=== PATIENT | female | born 1980 | race Caucasian/White ===

== ENCOUNTER 2016-11-27 15:36 | Emergency (ER) | payer OTHER ==
[~2016-11-27] VITALS: Ht 175.3 cm; Wt 81.7 kg
--- NOTE | ~2016-11-27 | EKG ---
[address] [place] [address] ELECTROCARDIOGRAM REPORT Name: TANNER HARRINGTON Room #: DEP LULU Bhat#: [id number] Admission: 11/27/16 Attend Phys: Discharge: 11/27/16 Date of : 82 Report #: [id number] THIS REPORT FOR: //name// [facility] ED Test Date: 2016-11-27 Test Time: 15:41:05 Pat Name: TANNER HARRINGTON Department: Room: Gender: F Contract Lead: Evangelina COATS : 1980 Requested By: Melo Collins Order Number: [id number] MD: Kobe Bruner Measurements Intervals [place] Rate: 141 P: 85 MT: 120 QRS: 37 QRSD: 83 T: -52 QT: 299 QTc: 458 Interpretive Statements Sinus tachycardia Borderline T abnormalities, inferior leads No previous ECG available for comparison Electronically Signed On 11-27-2016 20:30:17 CDT by Kobe Bruner [email or web address] <ELECTRONICALLY SIGNED> By: Kobe Bruner MD 11/27/16 2030 1541 1541 Kobe Bruner MD /DADA
[~2016-11-27 15:36] MED LIST: AMOXICILLIN875 MG PO; PERCOCET 5-3251 EACH PO
[2016-11-27 16:01] LABS: HEMATOCRIT 42.6 % (37.0-47.0); HEMOGLOBIN 14.6 gm/dL (12.0-15.0); MANUAL DIFF YES; MCH 32.8 pg (26.0-34.0); MCHC 34.2 g/dL (28.0-37.0); MCV 95.9 fL (80.0-100.0); PLATELET COUNT 486 thou/uL (150-400); RBC 4.44 mil/uL (4.20-5.00); RDW 13.8 % (10.5-14.5); WBC 19.6 thou/uL (4.0-11.0)
[2016-11-27 16:11] LABS: ANION GAP 11 mmol/L (7-16); BUN 9 mg/dL (7-18); CALCIUM 9.5 mg/dL (8.5-10.1); CHLORIDE 103 mmol/L (98-107); CO2 22 mmol/L (21-32); GLUCOSE 111 mg/dL (74-106); POTASSIUM 3.8 mmol/L (3.5-5.1); SODIUM 136 mmol/L (136-145)
[2016-11-27 16:20] LABS: ALBUMIN 3.8 g/dL (3.4-5.0); ALKALINE PHOSPHATASE 104 U/L (46-116); SGOT 12 U/L (15-37); SGPT 18 U/L (30-65); TOTAL BILIRUBIN 0.6 mg/dL (<0.1-1.0); TOTAL PROTEIN 7.7 g/dL (6.4-8.2); TROPONIN-I < 0.04 ng/mL (<0.04-0.07)
[2016-11-27 16:22] LABS: ABSOLUTE NEUTROPHILS 17.1 thou/uL (1.4-8.2); ANISOCYTOSIS SLIGHT; TOTAL CELL COUNT 100
[2016-11-27 17:20] VITALS: BP 134/91
== END 2016-11-27 17:24 | disposition left against medical advice (07) ==
LOC: ER 15:36
PROVIDERS: Physician Assistant
DX: R00.0 Tachycardia, unspecified (principal); F15.10 Other stimulant abuse, uncomplicated; F17.210 Nicotine dependence, cigarettes, uncomplicated; Z53.21 Procedure and treatment not carried out due to patient leaving prior to being seen by health care provider

== ENCOUNTER 2017-11-30 22:02 | Emergency (ER) | payer OTHER ==
[~2017-11-30] VITALS: Ht 172.7 cm; Wt 87.5 kg
[2017-11-30] MEDS ORDERED: XANAX1 MG PO (22:10)
[2017-11-30] MEDS ORDERED: SERTRALINE HCL50 MG PO (22:11)
[2017-11-30 22:51] VITALS: BP 128/60
== END 2017-11-30 22:52 | disposition home or self-care (01) ==
LOC: ER 22:02
DX: H00.14 Chalazion left upper eyelid (principal); F17.210 Nicotine dependence, cigarettes, uncomplicated

== ENCOUNTER 2018-03-19 20:17 | Emergency (ER) | payer OTHER ==
[~2018-03-19] VITALS: Ht 172.7 cm; Wt 86.2 kg
[~2018-03-19 20:17] MED LIST changes: +KEFLEX500 M1 PO; +SERTRALINE HCL50 MG PO; +XANAX1 MG PO
[2018-03-19 20:19] VITALS: BP 133/80
== END 2018-03-19 20:46 | disposition left against medical advice (07) ==
LOC: ER 20:17
DX: F15.10 Other stimulant abuse, uncomplicated (principal); F17.210 Nicotine dependence, cigarettes, uncomplicated